=== PATIENT | female | born 1955 | race Caucasian/White ===

== ENCOUNTER 2017-08-10 16:32 | Emergency (ER) | payer OTHER | END 2017-08-10 17:00 | disposition home or self-care (01) | LOC: E/R 16:32 | DX: H66.91 Otitis media, unspecified, right ear (principal); J06.9 Acute upper respiratory infection, unspecified | CPT/HCPCS: 99284; Z7502 ==

== ENCOUNTER 2017-09-05 15:23 | Emergency (ER) | payer OTHER ==
[2017-09-05] MEDS: KETOROLAC 15 MG INJ IV (16:29)
[2017-09-05] MEDS: SOD CHLORIDE 0.9% 500 ML IV (16:29)
[2017-09-05 16:46] LABS: ADD MAN DIFF? NO
[2017-09-05 16:49] LABS: BASOPHIL # 0.1 10^3/ul (0.0-0.1); BASOPHILS % 0.6 % (0.0-2.0); EOSINOPHILS # 0.6 10^3/ul (0.0-0.5); EOSINOPHILS % 7.4 % (0.0-7.0); HEMATOCRIT 39.5 % (37.0-47.0); HEMOGLOBIN 13.1 g/dl (12.0-16.0); LYMPHOCYTES # 2.9 10^3/ul (0.8-2.9); LYMPHOCYTES % 37.1 % (15.0-51.0); MEAN CORPUSCULAR HEMOGLOBIN 28.8 pg (29.0-33.0); MEAN CORPUSCULAR HGB CONC 33.2 g/dl (32.0-37.0); MEAN CORPUSCULAR VOLUME 86.8 fl (82.0-101.0); MEAN PLATELET VOLUME 11.6 fl (7.4-10.4); MONOCYTE # 0.9 10^3/ul (0.3-0.9); MONOCYTES % 11.3 % (0.0-11.0); NEUTROPHIL # 3.4 10^3/ul (1.6-7.5); NEUTROPHILS % 43.3 % (39.0-77.0); PLATELET COUNT 274 10^3/UL (140-415); RED BLOOD COUNT 4.55 10^6/ul (4.20-5.40)
[2017-09-05 16:49] LABS: WHITE BLOOD COUNT 7.8 10^3/ul (4.8-10.8)
[2017-09-05 17:06] LABS: ALANINE AMINOTRANSFERASE 40 IU/L (13-69); ALBUMIN 3.9 g/dl (3.3-4.9); ALKALINE PHOSPHATASE 127 IU/L (42-121); ANION GAP 19 (8-16); ASPARTATE AMINO TRANSFERASE 48 IU/L (15-46); BILIRUBIN,INDIRECT 0.2 mg/dl (0-1.1); BILIRUBIN,TOTAL 0.2 mg/dl (0.2-1.3); BLOOD UREA NITROGEN 11 mg/dl (7-20); CALCIUM 9.9 mg/dl (8.4-10.2); CARBON DIOXIDE 28 mmol/L (21-31); CHLORIDE 103 mmol/L (97-110); CREATININE 0.56 mg/dl (0.44-1.00); GLUCOSE 110 mg/dl (70-220); LIPASE 147 U/L (23-300); POTASSIUM 3.9 mmol/L (3.5-5.1); SODIUM 146 mmol/L (135-144); TOTAL PROTEIN 8.2 g/dl (6.1-8.1)
[2017-09-05 17:06] LABS: D-DIMER 670.67 ng/ml (<460)
[2017-09-05 17:19] LABS: TROPONIN-I < 0.012 ng/ml (0.00-0.12)
[2017-09-05] MEDS: SOD CHLORIDE 0.9% 100 ML (18:06)
[2017-09-05] MEDS: IOHEXOL 100 ML (18:06)
[2017-09-05] MEDS ORDERED: ALBUTEROL 0.5% (NEB) 2.5 MG/0.5 ML AMP (18:43)
[2017-09-05] MEDS: ALBUTEROL 0.5% (NEB) 2.5 MG/0.5 ML AMP INH (18:48)
== END 2017-09-05 19:23 | disposition home or self-care (01) ==
LOC: E/R 15:23
DX: J45.41 Moderate persistent asthma with (acute) exacerbation (principal); E11.9 Type 2 diabetes mellitus without complications; I10 Essential (primary) hypertension; Z79.84 Long term (current) use of oral hypoglycemic drugs
CPT/HCPCS: 36415; 71045; 71275; 80053; 83690; 84484; 85025; 85378; 87400; 93005; 94664; 96374; 99285-25

== ENCOUNTER 2018-03-25 12:25 | Day surgery (SDC) | payer OTHER ==
[~2018-03-25 12:25] MED LIST: MIDAZOLAM 1 MG/ML 2 ML INJ
[2018-03-25] MEDS ORDERED: FENTAnyl 50 MCG/ML VIAL (13:55)
[2018-03-25] MEDS ORDERED: LIDOCAINE 2% (SDV) 5 ML INJ (13:55)
[2018-03-25] MEDS ORDERED: PROPOFOL 20 ML (13:55)
== END 2018-03-25 16:21 | disposition home or self-care (01) ==
LOC: GIL 12:25
DX: Z12.11 Encounter for screening for malignant neoplasm of colon (principal); K29.50 Unspecified chronic gastritis without bleeding; D12.6 Benign neoplasm of colon, unspecified; K64.8 Other hemorrhoids; E11.9 Type 2 diabetes mellitus without complications; I10 Essential (primary) hypertension; E78.5 Hyperlipidemia, unspecified
CPT/HCPCS: 45380; 88305; 88312